=== PATIENT | female | born 1955 | race Caucasian/White ===

== ENCOUNTER 2020-04-14 18:18 | Observation (INO) ==
[2020-04-14] MEDS ORDERED: SODIUM CHLORIDE 0.9% 500 ML IV STA (19:05)
[2020-04-14 19:30] LABS: Basophils % 0.3 % (0.0-0.8); Eosinophils # 0.1 10*3/uL (0.0-0.87); Eosinophils % 0.8 % (0.00-10.9); Hematocrit 35.9 VOL% (35.7-47.0); Hemoglobin 11.2 GM/DL (12.0-16.0); Immature Granulocytes % 0.2 %; Immature Granulocytes Absolute 0.03 #; Lymphocytes # 1.8 10*3/uL (1.4-4.0); Lymphocytes % 14.3 % (21.3-54.2); Mean Corpuscular HGB Conc 31.2 GM/DL (32-36); Mean Corpuscular Volume 96.5 FL (87-102); Mean Platelet Volume 11.4 FL (9.6-12.0); Monocytes % 2.8 % (1.7-12.7); Neutrophils % 81.6 % (38.7-73.9); Platelet Count 181 T/CUMM (130-400); Red Blood Count 3.72 MC/CUMM (3.8-5.5); Red Cell Distribution Width 13.3 % (9.3-17.3); White Blood Count 12.3 T/CUMM (4-12)
[2020-04-14 19:35] LABS: Barbiturates Screen,Urine Negative (Negative); Benzodiazepines Screen,Urine Negative (Negative); Cannabinoid Screen,Urine Negative (Negative); Opiate Screen,Urine Positive (Negative); Phencyclidine Screen,Urine Negative (Negative)
[2020-04-14 19:36] LABS: Bilirubin,Urine Negative (Negative); Blood, Urine Negative (Negative); Glucose,Urine (UA) Negative (Negative); Hyaline Casts,Urine 14 /LPF (0-3); Ketones,Urine Negative (Negative); Mucus,Urine Occasional /LPF (Occasional); Nitrite,Urine Negative (Negative); Protein,Urine Negative; RBC,Urine 1 /HPF (0-4); Squamous Epithelial Cell,Urine Occasional /HPF (0-10); Urine Appearance Slightly Hazy (Clear); Urine Color Yellow (Yellow); Urine Specific Gravity 1.018 (1.001-1.035); Urine Urobilinogen < 2.0 EU/DL (0.2-1.0)
[2020-04-14 19:38] LABS: PT Patient Result 11.2 SECS (9.8-11.9)
[2020-04-14 19:43] LABS: Alanine Aminotransferase 21 U/L (13-56); Albumin 3.7 G/DL (3.4-5.0); Alkaline Phosphatase 83 U/L (45-117); Aspartate Amino Transferase 33 U/L (0-37); Bilirubin,Total < 0.39 MG/DL (0.2-1.0); Blood Urea Nitrogen 57 MG/DL (7-18); CKMB % 2.8 %; Calcium 9.2 MG/DL (8.5-10.1); Estimated Glom Filtration Rate 19 ML/MIN; Ferritin 111.9 ng/ml (8-252); Glucose 129 MG/DL (74-106); Osmolality,Calculated 298.3 MOS/KG (273-304); Total Protein 7.3 G/DL (6.4-8.3)
[2020-04-14] MEDS ORDERED: SODIUM CHLORIDE 0.9% 1,000 ML IV STA (19:54)
[2020-04-14] MEDS ORDERED: NALOXONE 0.4 MG/ML VIAL IV STA (19:55)
[2020-04-14] MEDS ORDERED: NICOTINE 21 MG/24 HR PATCH TRANSDERM PRN (20:10)
[2020-04-14] MEDS ORDERED: OLANZapine 5 MG TABLET PO PRN (20:10)
[2020-04-14] MEDS ORDERED: hydrALAZINE 20 MG/1 ML VIAL IV PRN (20:10)
[2020-04-14] MEDS ORDERED: GLUCAGON 1 MG VIAL IM PRN (20:10)
[2020-04-14] MEDS ORDERED: diphenhydrAMINE CAP 25 MG CAPSULE PO PRN (20:10)
[2020-04-14] MEDS ORDERED: guaiFENesin/DM ER 600-30 MG TABLET PO PRN (20:10)
[2020-04-14] MEDS ORDERED: ACETAMINOPHEN 325 MG TABLET PO PRN (20:10)
[2020-04-14] MEDS ORDERED: ONDANSETRON 4 MG/2 ML VIAL IV PRN (20:10)
[2020-04-14] MEDS ORDERED: DEXTROSE 10% 250 ML BAG IV PRN (20:10)
[2020-04-14 20:34] LABS: Sedimentation Rate-Westergren 59 MM/HR (0-30)
[2020-04-14] MEDS: SODIUM CHLORIDE 0.9% 1,000 ML IV SCH (22:25)
[2020-04-15 06:48] LABS: Basophils % 0.3 % (0.0-0.8); Eosinophils # 0.1 10*3/uL (0.0-0.87); Eosinophils % 1.1 % (0.00-10.9); Hematocrit 32.6 VOL% (35.7-47.0); Immature Granulocytes % 0.3 %; Immature Granulocytes Absolute 0.02 #; Lymphocytes # 2.2 10*3/uL (1.4-4.0); Mean Corpuscular HGB Conc 30.7 GM/DL (32-36); Mean Corpuscular Volume 97.9 FL (87-102); Mean Platelet Volume 11.5 FL (9.6-12.0); Neutrophils % 65.3 % (38.7-73.9); Platelet Count 133 T/CUMM (130-400); Red Blood Count 3.33 MC/CUMM (3.8-5.5); Red Cell Distribution Width 13.2 % (9.3-17.3)
[2020-04-15 07:16] LABS: Alanine Aminotransferase 15 U/L (13-56); Albumin 3.1 G/DL (3.4-5.0); Alkaline Phosphatase 69 U/L (45-117); Aspartate Amino Transferase 21 U/L (0-37); Bilirubin,Total < 0.39 MG/DL (0.2-1.0); Blood Urea Nitrogen 51 MG/DL (7-18); Calcium 8.6 MG/DL (8.5-10.1); Estimated Glom Filtration Rate 29 ML/MIN; Glucose 92 MG/DL (74-106); Osmolality,Calculated 301.7 MOS/KG (273-304); Total Protein 6.1 G/DL (6.4-8.3)
[2020-04-15] MEDS: CLOPIDOGREL 75 MG TABLET PO SCH (12:32)
[2020-04-15] MEDS: SODIUM CHLORIDE 0.9% 1,000 ML IV SCH ×2 (14:10→22:46)
[2020-04-16 06:48] LABS: Basophils % 0.3 % (0.0-0.8); Eosinophils # 0.1 10*3/uL (0.0-0.87); Eosinophils % 0.5 % (0.00-10.9); Hemoglobin 10.8 GM/DL (12.0-16.0); Immature Granulocytes % 0.5 %; Immature Granulocytes Absolute 0.06 #; Lymphocytes # 2.1 10*3/uL (1.4-4.0); Mean Corpuscular HGB Conc 31.8 GM/DL (32-36); Mean Corpuscular Volume 95.2 FL (87-102); Mean Platelet Volume 11.5 FL (9.6-12.0); Monocytes % 4.5 % (1.7-12.7); Neutrophils % 76.2 % (38.7-73.9); Platelet Count 137 T/CUMM (130-400); Red Blood Count 3.57 MC/CUMM (3.8-5.5); Red Cell Distribution Width 13.2 % (9.3-17.3); White Blood Count 11.4 T/CUMM (4-12)
[2020-04-16 07:09] LABS: Calcium 8.6 MG/DL (8.5-10.1); Osmolality,Calculated 294.6 MOS/KG (273-304)
[2020-04-16] MEDS: amLODIPine 10 MG TABLET PO SCH (08:23)
[2020-04-16] MEDS: ATORVASTATIN 80 MG TABLET PO SCH (08:23)
[2020-04-16] MEDS: NEBIVOLOL 10 MG TABLET PO SCH (08:24)
[2020-04-16] MEDS: ASPIRIN EC 81 MG TABLET PO SCH (08:24)
[2020-04-16] MEDS: CLOPIDOGREL 75 MG TABLET PO SCH (08:25)
[2020-04-16] MEDS: SODIUM CHLORIDE 0.9% 1,000 ML IV SCH ×2 (13:53→21:25)
[2020-04-17] MEDS: SODIUM CHLORIDE 0.9% 1,000 ML IV SCH (03:57)
[2020-04-17 07:14] LABS: Basophils % 0.3 % (0.0-0.8); Eosinophils % 0.4 % (0.00-10.9); Hematocrit 30.5 VOL% (35.7-47.0); Hemoglobin 10.1 GM/DL (12.0-16.0); Immature Granulocytes % 0.4 %; Immature Granulocytes Absolute 0.04 #; Lymphocytes # 2.7 10*3/uL (1.4-4.0); Lymphocytes % 26.3 % (21.3-54.2); Mean Corpuscular HGB Conc 33.1 GM/DL (32-36); Mean Corpuscular Volume 91.3 FL (87-102); Mean Platelet Volume 11.8 FL (9.6-12.0); Monocytes % 4.6 % (1.7-12.7); Platelet Count 130 T/CUMM (130-400); Red Blood Count 3.34 MC/CUMM (3.8-5.5); Red Cell Distribution Width 13.1 % (9.3-17.3); White Blood Count 10.4 T/CUMM (4-12)
[2020-04-17 07:22] LABS: Calcium 8.2 MG/DL (8.5-10.1); Osmolality,Calculated 284.1 MOS/KG (273-304)
[2020-04-17] MEDS: ATORVASTATIN 80 MG TABLET PO SCH (09:16)
[2020-04-17] MEDS: NEBIVOLOL 10 MG TABLET PO SCH (09:16)
[2020-04-17] MEDS: ASPIRIN EC 81 MG TABLET PO SCH (09:17)
[2020-04-17] MEDS: CLOPIDOGREL 75 MG TABLET PO SCH (09:17)
[2020-04-17] MEDS: amLODIPine 10 MG TABLET PO SCH (09:17)
[2020-04-17 12:41] VITALS: BP 158/81
== END 2020-04-17 13:53 | disposition home or self-care (01) ==
LOC: EDBD → EDUNIT# → N.ED 18:18 → N.EDINP 18:18 → SUATTDRO 20:10 → N.TELEN 20:54
PROVIDERS: ADMIT Internal Medicine Geriatric Medicine; ATTEND Internal Medicine

== ENCOUNTER 2020-06-02 00:06 | Observation (INO) ==
[2020-06-02] MEDS ORDERED: ONDANSETRON 4 MG/2 ML VIAL IV STA (00:27)
[2020-06-02 00:57] LABS: Basophils % 0.3 % (0.0-0.8); Eosinophils # 0.3 10*3/uL (0.0-0.87); Eosinophils % 2.3 % (0.00-10.9); Hematocrit 31.2 VOL% (35.7-47.0); Hemoglobin 9.8 GM/DL (12.0-16.0); Immature Granulocytes % 0.4 %; Immature Granulocytes Absolute 0.05 #; Lymphocytes # 4.5 10*3/uL (1.4-4.0); Lymphocytes % 39.3 % (21.3-54.2); Mean Corpuscular HGB Conc 31.4 GM/DL (32-36); Mean Platelet Volume 10.3 FL (9.6-12.0); Monocytes % 7.8 % (1.7-12.7); Neutrophils % 49.9 % (38.7-73.9); Platelet Count 217 T/CUMM (130-400); Red Blood Count 3.25 MC/CUMM (3.8-5.5); Red Cell Distribution Width 13.3 % (9.3-17.3); White Blood Count 11.6 T/CUMM (4-12)
[2020-06-02 01:11] LABS: Alanine Aminotransferase 27 U/L (13-56); Albumin 3.7 G/DL (3.4-5.0); Alkaline Phosphatase 90 U/L (45-117); Aspartate Amino Transferase 11 U/L (0-37); Bilirubin,Total < 0.39 MG/DL (0.2-1.0); Blood Urea Nitrogen 35 MG/DL (7-18); Calcium 9.2 MG/DL (8.5-10.1); Estimated Glom Filtration Rate 38 ML/MIN; Glucose 115 MG/DL (74-106); Osmolality,Calculated 281.8 MOS/KG (273-304); Total Protein 7.5 G/DL (6.4-8.3)
[2020-06-02 01:54] LABS: Barbiturates Screen,Urine Negative (Negative); Benzodiazepines Screen,Urine Negative (Negative); Cannabinoid Screen,Urine Negative (Negative); Opiate Screen,Urine Positive (Negative); Phencyclidine Screen,Urine Negative (Negative)
[2020-06-02] MEDS ORDERED: LABETALOL 20 MG/4 ML SYRINGE IV PRN (02:15)
[2020-06-02 02:16] LABS: Bacteria,Urine Occasional /HPF (Few); Bilirubin,Urine Negative (Negative); Blood, Urine Negative (Negative); Glucose,Urine (UA) Negative (Negative); Hyaline Casts,Urine 3 /LPF (0-3); Ketones,Urine Negative (Negative); Nitrite,Urine Negative (Negative); Protein,Urine Negative; RBC,Urine 1 /HPF (0-4); Renal Epithelial Cells,Urine Occasional /HPF (<1); Squamous Epithelial Cell,Urine Occasional /HPF (0-10); Urine Appearance CLEAR (Clear); Urine Color Yellow (Yellow); Urine Specific Gravity 1.018 (1.001-1.035); Urine Urobilinogen < 2.0 EU/DL (0.2-1.0); WBC,Urine 3 /HPF (0-6)
[2020-06-02 02:43] LABS: PT Patient Result 10.5 SECS (9.8-11.9); Partial Thromboplastin Time 21.4 SECS (23.9-33.8)
[2020-06-02 02:45] LABS: Band Neutrophils 1 % (0-10); Eosinophils 3 % (0-10); Hypochromasia Slight; Lymphocytes 39 % (20-55); Platelet Estimate Normal; Segmented Neutrophils 49 % (50-85); Total Cells Counted 100
[2020-06-02] MEDS: SODIUM CHLORIDE 0.9% 1,000 ML IV SCH ×3 (03:02→20:56)
[2020-06-02 05:26] LABS: Risk Ratio 3.08; VLDL CHOLESTEROL 32.6 MG/DL
[2020-06-02 07:26] LABS: Basophils % 0.3 % (0.0-0.8); Eosinophils # 0.3 10*3/uL (0.0-0.87); Eosinophils % 3.6 % (0.00-10.9); Hematocrit 29.5 VOL% (35.7-47.0); Hemoglobin 9.4 GM/DL (12.0-16.0); Immature Granulocytes % 0.6 %; Immature Granulocytes Absolute 0.06 #; Lymphocytes # 3.6 10*3/uL (1.4-4.0); Mean Corpuscular HGB Conc 31.9 GM/DL (32-36); Mean Corpuscular Volume 95.5 FL (87-102); Mean Platelet Volume 10.7 FL (9.6-12.0); Monocytes % 7.4 % (1.7-12.7); Neutrophils % 50.1 % (38.7-73.9); Platelet Count 176 T/CUMM (130-400); Red Blood Count 3.09 MC/CUMM (3.8-5.5); Red Cell Distribution Width 13.4 % (9.3-17.3); White Blood Count 9.5 T/CUMM (4-12)
[2020-06-02 07:41] LABS: Osmolality,Calculated 282.7 MOS/KG (273-304)
[2020-06-02] MEDS ORDERED: ENOXAPARIN 40 MG/0.4 ML SYRINGE SUBCUT SCH (08:00)
[2020-06-02] MEDS ORDERED: CLOPIDOGREL 75 MG TABLET PO SCH (09:00)
[2020-06-02] MEDS: CHLORTHALIDONE 25 MG TABLET PO SCH (09:16)
[2020-06-02] MEDS: busPIRone 10 MG TABLET PO SCH ×3 (09:17→20:20)
[2020-06-02] MEDS: ASPIRIN EC 81 MG TABLET PO SCH (09:17)
[2020-06-02] MEDS: ATORVASTATIN 80 MG TABLET PO SCH (09:17)
[2020-06-02] MEDS: carvediloL 12.5 MG TABLET PO SCH ×2 (09:17→18:42)
[2020-06-02] MEDS: ISOSORBIDE MONONITRATE 60 MG TABLET PO SCH (09:17)
[2020-06-02] MEDS: lisinopriL 20 MG TABLET PO SCH (09:17)
[2020-06-02 10:28] LABS: Calcium 9.4 MG/DL (8.5-10.1); Osmolality,Calculated 281.7 MOS/KG (273-304)
[2020-06-02] MEDS: APIXABAN 2.5 MG TABLET PO SCH (20:50)
[2020-06-02] MEDS: ZALEPLON 5 MG CAPSULE PO PRN (20:53)
[2020-06-03 06:17] LABS: Basophils % 0.2 % (0.0-0.8); Eosinophils # 0.3 10*3/uL (0.0-0.87); Eosinophils % 3.2 % (0.00-10.9); Hematocrit 27.9 VOL% (35.7-47.0); Hemoglobin 8.8 GM/DL (12.0-16.0); Immature Granulocytes % 0.3 %; Immature Granulocytes Absolute 0.03 #; Lymphocytes # 3.5 10*3/uL (1.4-4.0); Lymphocytes % 36.6 % (21.3-54.2); Mean Corpuscular HGB Conc 31.5 GM/DL (32-36); Mean Corpuscular Volume 95.2 FL (87-102); Monocytes % 7.4 % (1.7-12.7); Neutrophils % 52.3 % (38.7-73.9); Platelet Count 168 T/CUMM (130-400); Red Blood Count 2.93 MC/CUMM (3.8-5.5); Red Cell Distribution Width 13.2 % (9.3-17.3); White Blood Count 9.5 T/CUMM (4-12)
[2020-06-03 06:36] LABS: Calcium 8.5 MG/DL (8.5-10.1); Osmolality,Calculated 283.5 MOS/KG (273-304)
[2020-06-03] MEDS: SODIUM CHLORIDE 0.9% 1,000 ML IV SCH (08:07)
[2020-06-03] MEDS: ATORVASTATIN 80 MG TABLET PO SCH (08:25)
[2020-06-03] MEDS: ASPIRIN EC 81 MG TABLET PO SCH (08:26)
[2020-06-03] MEDS: APIXABAN 2.5 MG TABLET PO SCH ×2 (08:26→20:23)
[2020-06-03] MEDS: carvediloL 12.5 MG TABLET PO SCH ×2 (08:26→17:13)
[2020-06-03] MEDS: CHLORTHALIDONE 25 MG TABLET PO SCH (08:27)
[2020-06-03] MEDS: ISOSORBIDE MONONITRATE 60 MG TABLET PO SCH (08:27)
[2020-06-03] MEDS: busPIRone 10 MG TABLET PO SCH ×2 (08:56→20:24)
[2020-06-03] MEDS: lisinopriL 20 MG TABLET PO SCH (08:58)
[2020-06-04] MEDS: SODIUM CHLORIDE 0.9% 1,000 ML IV SCH ×2 (00:07→13:30)
[2020-06-04] MEDS: ZALEPLON 5 MG CAPSULE PO PRN ×2 (02:14→21:46)
[2020-06-04] MEDS: CHLORTHALIDONE 25 MG TABLET PO SCH (09:03)
[2020-06-04] MEDS: ASPIRIN EC 81 MG TABLET PO SCH (09:03)
[2020-06-04] MEDS: ATORVASTATIN 80 MG TABLET PO SCH (09:03)
[2020-06-04] MEDS: APIXABAN 2.5 MG TABLET PO SCH ×2 (09:03→20:15)
[2020-06-04] MEDS: busPIRone 10 MG TABLET PO SCH ×2 (09:04→20:14)
[2020-06-04] MEDS: lisinopriL 20 MG TABLET PO SCH (09:04)
[2020-06-04] MEDS: carvediloL 12.5 MG TABLET PO SCH ×2 (09:04→17:20)
[2020-06-04] MEDS: ISOSORBIDE MONONITRATE 60 MG TABLET PO SCH (09:04)
[2020-06-04] MEDS: POLYETHYLENE GLYCOL POWDER 17 GM PACK PO SCH ×2 (14:45→20:16)
[2020-06-04] MEDS: DOCUSATE SODIUM 100 MG CAPSULE PO SCH ×2 (14:50→20:14)
[2020-06-04] MEDS ORDERED: SENNA 8.6 MG TABLET PO SCH (21:00)
[2020-06-05] MEDS: SODIUM CHLORIDE 0.9% 1,000 ML IV SCH ×2 (03:10→11:00)
[2020-06-05] MEDS ORDERED: ERGOCALCIFEROL 50,000 UNIT CAPSULE PO SCH (09:00)
[2020-06-05] MEDS: carvediloL 12.5 MG TABLET PO SCH (09:16)
[2020-06-05] MEDS: busPIRone 10 MG TABLET PO SCH (09:16)
[2020-06-05] MEDS: ASPIRIN EC 81 MG TABLET PO SCH (09:16)
[2020-06-05] MEDS: APIXABAN 2.5 MG TABLET PO SCH (09:17)
[2020-06-05] MEDS: CHLORTHALIDONE 25 MG TABLET PO SCH (09:17)
[2020-06-05] MEDS: DOCUSATE SODIUM 100 MG CAPSULE PO SCH (09:17)
[2020-06-05] MEDS: lisinopriL 20 MG TABLET PO SCH (09:18)
[2020-06-05] MEDS: POLYETHYLENE GLYCOL POWDER 17 GM PACK PO SCH (09:18)
[2020-06-05] MEDS: ATORVASTATIN 80 MG TABLET PO SCH (09:18)
[2020-06-05] MEDS: ISOSORBIDE MONONITRATE 60 MG TABLET PO SCH (09:18)
[2020-06-05] MEDS ORDERED: SODIUM PHOSPHATE ENEMA 133 ML BOTTLE RECTAL PRN (10:02)
[2020-06-05 12:15] VITALS: BP 150/73
[2020-06-05] MEDS ORDERED: POLYETHYLENE GLYCOL POWDER 17 GM PACK PO PRN (14:49)
[2020-06-05] MEDS ORDERED: SENNA 8.6 MG TABLET PO PRN (14:50)
== END 2020-06-05 16:59 | disposition home or self-care (01) ==
LOC: N.ED 00:06 → N.EDINP 00:06 → SUATTDRO 02:15 → N.3E 06:00
PROVIDERS: ADMIT Family Medicine; ATTEND Hospitalist